=== PATIENT | male | born 1945 | race Caucasian/White ===

== ENCOUNTER → 2017-11-20 | Outpatient (CLI) | payer OTHER ==
[~2017-11-20] MED LIST: ALBU90OI INH; ASCO500 PO; ASPI325 PO; ATOR40TA PO; BENAML10/2; BENZ100A PO; BP MED; BUME2; BUME2 PO; CHOLESTEROL MED; CIPR500 PO; COLCRYS0.6 MG PO; CYAN1000 PO; CYCL10 PO; DIAZ5 PO; DOC250 PO; EXLAX; FISH1000 PO; GUAI600T33 PO; HYDACE5 PO; IBUP400 PO; LACT10SY PO; LEVO750 PO; LEVSOD75 PO; LISI20 PO; METO25ER PO; METPRE4DP PO; METR500 PO; NICO21TP TD; Naproxen500 MG PO; OFLO.3OPSO OS; OXYACE5T PO; OXYC5 PO; PANT40 PO; POTA10T PO; POTA20PAC PO; POTA8 PO; Percocet 5-3251 EACH PO; Prednisone20 MG PO; SIMV40 PO; SIMV5 PO; Valium5 MG PO
== END | disposition home or self-care (01) ==
LOC: PLD 08:19 → LAB SHORT 08:19
DX: L82.1 Other seborrheic keratosis (principal)
CPT/HCPCS: 88305

== ENCOUNTER 2017-11-23 22:34 | Inpatient (IN) | payer OTHER ==
[~2017-11-23] VITALS: Ht 177.8 cm; Wt 116.0 kg
[~2017-11-23 22:34] MED LIST changes: -ATOR40TA PO; -COLCRYS0.6 MG PO; -LEVSOD75 PO; -METO25ER PO; -NICO21TP TD; -PANT40 PO
[2017-11-23 23:32] LABS: BASOPHILS ABSOLUTE AUTO 0.03 K/mm3 (0.00-0.23); BASOPHILS PERCENT AUTO 0 % (0-2); EOSINOPHILS ABSOLUTE AUTO 0.12 K/mm3 (0.00-0.68); EOSINOPHILS PERCENT AUTO 1 % (0-6); Hematocrit 31.7 % (37.0-53.0); Hemoglobin 10.6 g/dL (13.5-17.5); IMMATURE GRAN ABSOLUTE AUTO 0.09 K/mm3 (0.00-0.10); IMMATURE GRAN PERCENT AUTO 1 % (0-1); LYMPHOCYTES ABSOLUTE AUTO 1.02 K/mm3 (0.84-5.20); LYMPHOCYTES PERCENT AUTO 6 % (21-46); MONOCYTES ABSOLUTE AUTO 2.24 K/mm3 (0.16-1.47); MONOCYTES PERCENT AUTO 14 % (4-13); Mean Corpuscular HGB 31.5 pg (26.0-34.0); Mean Corpuscular HGB Conc 33.4 g/dL (31.5-36.5); Mean Corpuscular Volume 94 fL (80-100); Mean Platelet Volume 8.9 fL (9.1-12.4); NEUTROPHILS PERCENT AUTO 78 % (41-73); Platelet Count 425 K/mm3 (150-400); RDW Coefficient Variation 12.5 % (11.7-14.2); RDW Standard Deviation 43.6 fL (35.1-46.3); Red Blood Cell Count 3.36 M/mm3 (4.30-5.90)
[2017-11-23 23:46] LABS: Alanine Aminotransfer (ALT/SGP 46 U/L (12-78); Albumin, Blood 2.7 g/dL (3.4-5.0); Albumin/Globulin Ratio 0.6 (0.8-1.8); Alk Phos 133 U/L (50-136); Anion Gap 10 mmol/L (6-16); Aspartate Aminotrans (AST/SGOT 23 U/L (12-37); Bilirubin, Total 0.7 mg/dL (0.1-1.0); Blood Urea Nitrogen 23 mg/dL (8-24); CO2, Blood 25 mmol/L (21-32); Calcium, Blood 8.4 mg/dL (8.5-10.1); Chloride, Blood 99 mmol/L (98-108); Creatinine, Blood 1.28 mg/dL (0.60-1.20); Globulin, Blood 4.9 g/dL (2.2-4.0); Glomerular Filtration Rate 58 (60-); Glucose, Blood 109 mg/dL (70-99); Potassium, Blood 3.9 mmol/L (3.5-5.5); Sodium, Blood 134 mmol/L (136-145); Total Protein, Blood 7.6 g/dL (6.4-8.2); Troponin I <0.015 ng/mL (0.000-0.040)
[2017-11-24 05:37] LABS: Source, Urine Clean Catch
[2017-11-24 05:42] LABS: Blood, Urine 1+ (Neg); Glucose Qualitative, Urine Neg (Neg); Ketones, Urine 1+ (Neg); Leukocyte Esterase, Urine 2+ (Neg); Nitrite, Urine Pos (Neg); Protein, Urine 1+ (Neg); Urobilinogen, Urine 2+ (Normal)
[2017-11-24 05:50] LABS: Appearance, Urine Hazy (Clear); Bilirubin, Urine 2+ (Neg); Color, Urine Amber (P-Yellow)
[2017-11-24 05:52] LABS: Bacteria Few /hpf; Mucus Light (0-Heavy); Red Blood Cells, Urine 0-2 /hpf (0-2); Squamous Epithelial Cells Mod /hpf (Few)
[2017-11-24 06:16] LABS: International Normalized Ratio 1.07; Prothrombin Time Results 11.1 Sec (9.7-11.5)
[2017-11-24 07:37] LABS: CPK Creatine Kinase 55 U/L (39-308); Troponin I <0.015 ng/mL (0.000-0.040)
[2017-11-24 15:16] LABS: BASOPHILS ABSOLUTE AUTO 0.03 K/mm3 (0.00-0.23); BASOPHILS PERCENT AUTO 0 % (0-2); EOSINOPHILS ABSOLUTE AUTO 0.08 K/mm3 (0.00-0.68); EOSINOPHILS PERCENT AUTO 1 % (0-6); Hemoglobin 10.2 g/dL (13.5-17.5); IMMATURE GRAN ABSOLUTE AUTO 0.06 K/mm3 (0.00-0.10); IMMATURE GRAN PERCENT AUTO 1 % (0-1); LYMPHOCYTES ABSOLUTE AUTO 0.96 K/mm3 (0.84-5.20); LYMPHOCYTES PERCENT AUTO 9 % (21-46); MONOCYTES ABSOLUTE AUTO 1.59 K/mm3 (0.16-1.47); MONOCYTES PERCENT AUTO 15 % (4-13); Mean Corpuscular HGB 31.3 pg (26.0-34.0); Mean Corpuscular HGB Conc 32.9 g/dL (31.5-36.5); Mean Corpuscular Volume 95 fL (80-100); Mean Platelet Volume 8.5 fL (9.1-12.4); NEUTROPHILS ABSOLUTE AUTO 7.65 K/mm3 (1.96-9.15); NEUTROPHILS PERCENT AUTO 74 % (41-73); Platelet Count 326 K/mm3 (150-400); RDW Coefficient Variation 12.6 % (11.7-14.2); RDW Standard Deviation 43.8 fL (35.1-46.3); Red Blood Cell Count 3.26 M/mm3 (4.30-5.90); White Blood Cell Count 10.37 K/mm3 (4.00-11.30)
[2017-11-24 15:34] LABS: Alanine Aminotransfer (ALT/SGP 39 U/L (12-78); Albumin, Blood 2.6 g/dL (3.4-5.0); Albumin/Globulin Ratio 0.5 (0.8-1.8); Alk Phos 129 U/L (50-136); Anion Gap 10 mmol/L (6-16); Aspartate Aminotrans (AST/SGOT 20 U/L (12-37); Bilirubin, Total 0.7 mg/dL (0.1-1.0); Blood Urea Nitrogen 23 mg/dL (8-24); Bun/Creatinine Ratio 20.2 (12.0-20.0); CO2, Blood 29 mmol/L (21-32); Calcium, Blood 8.4 mg/dL (8.5-10.1); Chloride, Blood 99 mmol/L (98-108); Creatinine, Blood 1.14 mg/dL (0.60-1.20); Globulin, Blood 4.8 g/dL (2.2-4.0); Glomerular Filtration Rate >60 (60-); Glucose, Blood 94 mg/dL (70-99); Potassium, Blood 3.4 mmol/L (3.5-5.5); Sodium, Blood 138 mmol/L (136-145); Total Protein, Blood 7.4 g/dL (6.4-8.2)
[2017-11-24 15:39] LABS: CPK Creatine Kinase 37 U/L (39-308); Troponin I <0.015 ng/mL (0.000-0.040)
[2017-11-25 04:13] LABS: BASOPHILS ABSOLUTE AUTO 0.03 K/mm3 (0.00-0.23); BASOPHILS PERCENT AUTO 0 % (0-2); EOSINOPHILS PERCENT AUTO 2 % (0-6); Hematocrit 30.8 % (37.0-53.0); Hemoglobin 10.1 g/dL (13.5-17.5); IMMATURE GRAN ABSOLUTE AUTO 0.07 K/mm3 (0.00-0.10); IMMATURE GRAN PERCENT AUTO 1 % (0-1); LYMPHOCYTES ABSOLUTE AUTO 1.44 K/mm3 (0.84-5.20); LYMPHOCYTES PERCENT AUTO 17 % (21-46); MONOCYTES ABSOLUTE AUTO 1.62 K/mm3 (0.16-1.47); MONOCYTES PERCENT AUTO 19 % (4-13); Mean Corpuscular HGB 30.9 pg (26.0-34.0); Mean Corpuscular HGB Conc 32.8 g/dL (31.5-36.5); Mean Corpuscular Volume 94 fL (80-100); Mean Platelet Volume 8.9 fL (9.1-12.4); NEUTROPHILS ABSOLUTE AUTO 5.28 K/mm3 (1.96-9.15); NEUTROPHILS PERCENT AUTO 61 % (41-73); Platelet Count 341 K/mm3 (150-400); RDW Coefficient Variation 12.5 % (11.7-14.2); RDW Standard Deviation 43.8 fL (35.1-46.3); Red Blood Cell Count 3.27 M/mm3 (4.30-5.90); White Blood Cell Count 8.64 K/mm3 (4.00-11.30)
[2017-11-25 04:38] LABS: Anion Gap 8 mmol/L (6-16); Blood Urea Nitrogen 22 mg/dL (8-24); Bun/Creatinine Ratio 22.3 (12.0-20.0); CO2, Blood 29 mmol/L (21-32); Calcium, Blood 8.6 mg/dL (8.5-10.1); Chloride, Blood 100 mmol/L (98-108); Creatinine, Blood 0.99 mg/dL (0.60-1.20); Glomerular Filtration Rate >60 (60-); Glucose, Blood 97 mg/dL (70-99); Potassium, Blood 3.4 mmol/L (3.5-5.5); Sodium, Blood 137 mmol/L (136-145); Thyroxine (T4) 8.9 ug/dL (4.5-12.1)
[2017-11-25 04:42] LABS: Triiodothyronine, Free 1.55 pg/mL (2.18-3.98)
[2017-11-26 04:59] LABS: Anion Gap 7 mmol/L (6-16); Blood Urea Nitrogen 18 mg/dL (8-24); Bun/Creatinine Ratio 19.4 (12.0-20.0); CO2, Blood 29 mmol/L (21-32); Calcium, Blood 8.6 mg/dL (8.5-10.1); Chloride, Blood 100 mmol/L (98-108); Creatinine, Blood 0.93 mg/dL (0.60-1.20); Glomerular Filtration Rate >60 (60-); Glucose, Blood 102 mg/dL (70-99); Potassium, Blood 3.9 mmol/L (3.5-5.5); Sodium, Blood 136 mmol/L (136-145)
[2017-11-26] MEDS ORDERED: ASPI325 PO (12:03)
[2017-11-26] MEDS ORDERED: ATOR40TA PO (12:04)
[2017-11-26] MEDS ORDERED: COLCRYS0.6 MG PO (12:05)
[2017-11-26] MEDS ORDERED: LEVSOD75 PO (12:07)
[2017-11-26] MEDS ORDERED: METO25ER PO (12:08)
[2017-11-26] MEDS ORDERED: NICO21TP TD (12:09)
[2017-11-26] MEDS ORDERED: PANT40 PO (12:10)
[2017-11-28 11:10] LABS: ANA DIRECT Positive (Negative); ANTI-CENTROMERE B ANTIBODIES <0.2 AI (0.0-0.9); ANTI-DNA (DS) AB QN 1 IU/mL (0-9); ANTI-JO-1 <0.2 AI (0.0-0.9); ANTICHROMATIN ANTIBODIES <0.2 AI (0.0-0.9); ANTIMYELOPEROXIDASE (MPO) ABS <9.0 U/mL (0.0-9.0); ANTIPROTEINASE 3 (PR-3) ABS <3.5 U/mL (0.0-3.5); ANTIRIBOSOMAL P ANTIBODIES <0.2 AI (0.0-0.9); ANTISCLERODERMA-70 ANTIBODIES 2.8 AI (0.0-0.9); ATYPICAL PANCA <1:20 titer (Neg:<1:20); CYTOPLASMIC (C-ANCA) <1:20 titer (Neg:<1:20); PERINUCLEAR (P-ANCA) <1:20 titer (Neg:<1:20); RNP ANTIBODIES <0.2 AI (0.0-0.9); SJOGREN'S ANTI-SS-A <0.2 AI (0.0-0.9); SJOGREN'S ANTI-SS-B <0.2 AI (0.0-0.9); SMITH ANTIBODIES <0.2 AI (0.0-0.9); SMITH/RNP ANTIBODIES <0.2 AI (0.0-0.9)
[2017-11-28 16:09] LABS: A/G RATIO 0.8 (0.7-1.7); ALBUMIN 2.9 g/dL (2.9-4.4); ALPHA-1-GLOBULIN 0.3 g/dL (0.0-0.4); ALPHA-2-GLOBULIN 1.3 g/dL (0.4-1.0); GAMMA GLOBULIN 1.2 g/dL (0.4-1.8); GLOBULIN, TOTAL 3.8 g/dL (2.2-3.9); M-SPIKE Not Observed g/dL (Not Observed); PROTEIN, TOTAL, SERUM 6.7 g/dL (6.0-8.5)
== END 2017-11-26 12:53 | disposition home or self-care (01) | DRG 316 ==
LOC: ER 22:34 → PCU 11-24 00:47
PROVIDERS: Emergency Medicine; Internal Medicine
DX: I31.3 Pericardial effusion (noninflammatory) (principal); I25.10 Atherosclerotic heart disease of native coronary artery without angina pectoris; J44.9 Chronic obstructive pulmonary disease, unspecified; G62.9 Polyneuropathy, unspecified; I10 Essential (primary) hypertension; Z85.46 Personal history of malignant neoplasm of prostate; F17.210 Nicotine dependence, cigarettes, uncomplicated; R60.0 Localized edema
CPT/HCPCS: 36415; 71046; 71260; 76705; 80048; 80053; 81001; 82533; 82550; 83605; 83690; 83880; 84145; 84165; 84436; 84443; 84481; 84484; 85025; 85379; 85610; 85651; 86021; 87040; 87086; 93005; 93010; 93306; 93308; 93321; 94762; 96360; 96361; 99285; C9113; J1650; J1940; J1956; J7030; Q9967

== ENCOUNTER 2017-12-02 16:01 | Emergency (ER) | END 2017-12-02 18:34 | disposition home or self-care (01) ==

== ENCOUNTER 2018-11-09 14:13 | Emergency (ER) | payer OTHER ==
[~2018-11-09] VITALS: Ht 177.8 cm; Wt 111.6 kg
[~2018-11-09 14:13] MED LIST changes: +ATOR40TA PO; +COLCRYS0.6 MG PO; +LEVSOD75 PO; +METO25ER PO; +NICO21TP TD; +PANT40 PO
[2018-11-09] MEDS ORDERED: LISI5 PO (15:04)
[2018-11-09 17:30] LABS: BASOPHILS ABSOLUTE AUTO 0.04 K/mm3 (0.00-0.23); BASOPHILS PERCENT AUTO 0 % (0-2); EOSINOPHILS ABSOLUTE AUTO 0.35 K/mm3 (0.00-0.68); EOSINOPHILS PERCENT AUTO 4 % (0-6); Hematocrit 40.1 % (37.0-53.0); Hemoglobin 13.3 g/dL (13.5-17.5); IMMATURE GRAN ABSOLUTE AUTO 0.04 K/mm3 (0.00-0.10); IMMATURE GRAN PERCENT AUTO 0 % (0-1); LYMPHOCYTES ABSOLUTE AUTO 1.45 K/mm3 (0.84-5.20); LYMPHOCYTES PERCENT AUTO 15 % (21-46); MONOCYTES ABSOLUTE AUTO 1.15 K/mm3 (0.16-1.47); MONOCYTES PERCENT AUTO 12 % (4-13); Mean Corpuscular HGB 31.3 pg (26.0-34.0); Mean Corpuscular HGB Conc 33.2 g/dL (31.5-36.5); Mean Corpuscular Volume 94 fL (80-100); Mean Platelet Volume 9.1 fL (9.1-12.4); NEUTROPHILS ABSOLUTE AUTO 6.64 K/mm3 (1.96-9.15); NEUTROPHILS PERCENT AUTO 69 % (41-73); Platelet Count 238 K/mm3 (150-400); RDW Coefficient Variation 13.6 % (11.7-14.2); RDW Standard Deviation 46.2 fL (35.1-46.3); Red Blood Cell Count 4.25 M/mm3 (4.30-5.90); White Blood Cell Count 9.67 K/mm3 (4.00-11.30)
[2018-11-09] MEDS ORDERED: Percocet 5-3251 EACH PO (17:38)
== END 2018-11-09 18:00 | disposition home or self-care (01) ==
LOC: ER 14:13
PROVIDERS: Physician Assistant
DX: M54.5 Low back pain (principal); G89.29 Other chronic pain; F17.210 Nicotine dependence, cigarettes, uncomplicated; Z79.899 Other long term (current) drug therapy; Z79.82 Long term (current) use of aspirin
CPT/HCPCS: 74176; 85025; 85651; 99284-25; A9270-GY

== ENCOUNTER → 2019-04-16 | Outpatient (CLI) | payer OTHER ==
[~2019-04-16] MED LIST changes: +LISI5 PO
== END | disposition home or self-care (01) ==
LOC: LAB SHORT 14:42 → PLD 14:42
DX: L57.0 Actinic keratosis (principal)
CPT/HCPCS: 88305

== ENCOUNTER 2020-12-16 07:32 | Day surgery (SDC) | payer OTHER ==
[~2020-12-16] VITALS: Ht 177.8 cm; Wt 118.0 kg
[~2020-12-16 07:32] MED LIST changes: +Lisinopril10 MG PO; +Prinivil10 MG PO
--- NOTE | 2020-12-16 08:03 | NUR ---
DR. VELASQUEZ AT BEDSIDE TO EVALUATE PT, INTRODUCE SELF, AND ANSWER QUESTIONS. PT HAS BEEN PREPPED FOR PACEMAKER IMPLANT.
--- NOTE | 2020-12-16 12:06 | NUR ---
PT RETURNS TO RECOVERY ROOM VIA GURNEY, AWAKE AND ALERT. NEW PACEMAKER INSERTED ON LEFT SIDE CHEST. DENIES PAIN. HOB RAISED TO 90 DEGREES. TOLERATES PO FLUIDS/FOOD WITH NO DIFFICULTIES. VSS. PENDING ADMISSION TO PCU. INCISION IS COVERED WITH DRESSING NO BLEEDING OR OOZING NOTED. DRESSING C/D/I.
--- NOTE | 2020-12-16 12:48 | NUR ---
EKG COMPLETE. REPORT TO BE CALLED TO PCU 2 NURSE. PT PACEMAKER INCISION REMAINS COVERED, PRESSURE DRESSING IN PLACE. NO BLEEDING OR OOZING NOTED.
--- NOTE | 2020-12-16 13:25 | NUR ---
PT TRANSFERED TO PCU VIA W/C, ALL PERSONAL BELONGINGS SENT WITH HIM TO NEW ROOM, CXR COMPLETE. AMBULATORY IN ROOM WITH CANE, UNSTABLE BALANCE. CONTINUES TO APPEAR AOX4. DENIES PAIN. REPORT TO SHAYAN DOWNEY RN TO ASSUME CARE OF PT.
--- NOTE | 2020-12-16 13:30 | NUR ---
pt arrived to pcu 2 via wheelchair from [facility] via wheelchair, a/ox3, pleasant and coopertive with care, follows commands well, denies pain at this time, pressure dressing on site, v.s. stable. afebrile, iv site to lfa clear and patent, oriented to room layout and call system, call light in reach.
--- NOTE | 2020-12-16 18:13 | NUR ---
pt up to chair for dinner, took a nap, had some tylenol for discomfort, states it's feeling much better now. no acute changes or needs, call light in reach.
--- NOTE | 2020-12-16 20:00 | NUR ---
PT RESTING IN LOW SEMI FOWLERS POSITION IN BED. LEFT CHEST WALL PRESSURE DRESSING IN PLACE. PT DENIES ANY HEADACHE, CHEST PAIN, NAUSEA, SOB, OR NUMBNESS AND TINGLING. PT REPORTS HIS LEFT UPPER CHEST PAIN 1/10 WHICH HE REPORTS TOLERABLE. PROVIDED PT WITH WATER, AND A PILLOW, OTHERWISE HE DENIES ANY REQUESTS. HOME CPAP AT BEDSIDE - CONTACTED [facility] FOR CPAP ASSISTANCE/CHECK. PT HAS CHRONIC EDEMA TO BLE, LEFT LEG EDEMA 3+. PT REPORTS HE FOLLOWS UP WITH A DRAnita FOR HIS LEG EDEMA AND REPORTS HE TAKES A "WATER PILL". BED IN LOW POSITION. CALL LIGHT WITHIN REACH. NO PACER SPIKES SEEN ON MONITOR.
--- NOTE | 2020-12-17 02:30 | NUR ---
KNEE HIGH GISELE LEVINE PLACED ON TO BLE.
--- NOTE | 2020-12-17 06:08 | NUR ---
PRESSURE DRESSING TO LEFT CHEST WALL REMAINS UNCHANGED FROM THE BEGINNING OF THE SHIFT. PT DENIES ANY CHEST PAIN OR DISCOMFORT. PT'S MAIN COMPLAINT TONIGHT WAS LACK OF SLEEP. PT IS ANTICIPATING GOING HOME TODAY. PT CURRENTLY SITTING IN BED, DANGLING HIS LEGS, DRINKING DECAF COFFEE. FLUIDS AT BEDSIDE. CALL LIGHT WITHIN REACH. BED IN LOW POSITION. OCCASIONAL PACER SPIKES DURING THE NIGHT. PT WORE HIS CPAP FOR APPX 2-3 HOURS, CONTINUOUS BIOX IN PLACE - SATS WNL.
[2020-12-17 06:19] LABS: BASOPHILS ABSOLUTE AUTO 0.05 K/mm3 (0.00-0.23); BASOPHILS PERCENT AUTO 1 % (0-2); EOSINOPHILS ABSOLUTE AUTO 0.34 K/mm3 (0.00-0.68); EOSINOPHILS PERCENT AUTO 3 % (0-6); Hematocrit 37.3 % (37.0-53.0); Hemoglobin 12.6 g/dL (13.5-17.5); IMMATURE GRAN ABSOLUTE AUTO 0.05 K/mm3 (0.00-0.10); IMMATURE GRAN PERCENT AUTO 1 % (0-1); LYMPHOCYTES ABSOLUTE AUTO 0.91 K/mm3 (0.84-5.20); LYMPHOCYTES PERCENT AUTO 9 % (21-46); MONOCYTES ABSOLUTE AUTO 1.08 K/mm3 (0.16-1.47); MONOCYTES PERCENT AUTO 11 % (4-13); Mean Corpuscular HGB 32.2 pg (26.0-34.0); Mean Corpuscular HGB Conc 33.8 g/dL (31.5-36.5); Mean Corpuscular Volume 95 fL (80-100); Mean Platelet Volume 9.4 fL (9.1-12.4); NEUTROPHILS ABSOLUTE AUTO 7.57 K/mm3 (1.96-9.15); NEUTROPHILS PERCENT AUTO 76 % (41-73); Platelet Count 177 K/mm3 (150-400); RDW Coefficient Variation 13.1 % (11.7-14.2); RDW Standard Deviation 45.4 fL (35.1-46.3); Red Blood Cell Count 3.91 M/mm3 (4.30-5.90)
[2020-12-17 06:36] LABS: Anion Gap 6 mmol/L (6-16); Blood Urea Nitrogen 21 mg/dL (8-24); Bun/Creatinine Ratio 17.8 (12.0-20.0); CO2, Blood 25 mmol/L (21-32); Calcium, Blood 8.6 mg/dL (8.5-10.1); Chloride, Blood 107 mmol/L (98-108); Creatinine, Blood 1.18 mg/dL (0.60-1.20); Glomerular Filtration Rate >60 (60-); Glucose, Blood 117 mg/dL (70-99); Potassium, Blood 4.2 mmol/L (3.5-5.5); Sodium, Blood 138 mmol/L (136-145)
[2020-12-17] MEDS ORDERED: CEPH500 PO (09:49)
--- NOTE | 2020-12-17 10:30 | NUR ---
DISCHARGE PT WAS DISCHARGED TODAY AT APPROXIMATELY 1020. PT WAS GIVEN INSTRUCTIONS TO FOLLOW UP WITH CARDIOLOGY THIS COMING WEEK FOR WOUND CHECK AT THE PACER SITE, HE WAS ALSO INSTRUCTED TO FOLLOW UP IN 6 WEEKS FOR DEVICE CHECK. PT WAS GIVEN WRITTEN INSTRUCTIONS FOR PACER AFTER CARE AND PRECAUTIONS. PT WAS GIVEN INSTRUCTION TO FILL ANTIBIOTIC PRESCRIPTION TODAY TO PREVENT INFECTION AT THE SITE. PT GAVE VERBAL UNDERSTANDING. PT WAS SHOWN HOW TO REDRESS THE PACER SITE AND HIS WAS GIVEN VERBAL INSTRUCTIONS WELL. PT GAVE UNDERSTANDING DID HIS SPOUSE. PT WAS DISCHARGED AFTER TELE WAS DC'D AND IV WAS REMOVED
== END 2020-12-17 10:20 | disposition home or self-care (01) ==
LOC: MHTC 07:32 → PCU 12:49 → MHTC 12-17 10:20
PROVIDERS: Internal Medicine Cardiovascular Disease
DX: I44.39 Other atrioventricular block (principal); I25.10 Atherosclerotic heart disease of native coronary artery without angina pectoris; I10 Essential (primary) hypertension; E78.5 Hyperlipidemia, unspecified; J44.9 Chronic obstructive pulmonary disease, unspecified; I87.2 Venous insufficiency (chronic) (peripheral); Z79.82 Long term (current) use of aspirin; Z79.899 Other long term (current) drug therapy
CPT/HCPCS: 33208; 36415; 71045; 76937; 80048; 85025; 93005; 93010; 94762; 99152; 99153; A9270; C1781; C1785; C1894; C1898; J0690; J1644; J2250; J3010; J7030; J7040; Q9967

== ENCOUNTER → 2021-06-09 | Outpatient (CLI) | payer OTHER ==
[~2021-06-09] MED LIST changes: +CEPH500 PO
[2021-06-09 19:01] LABS: BASOPHILS ABSOLUTE AUTO 0.03 K/mm3 (0.00-0.23); BASOPHILS PERCENT AUTO 0 % (0-2); EOSINOPHILS ABSOLUTE AUTO 0.31 K/mm3 (0.00-0.68); EOSINOPHILS PERCENT AUTO 5 % (0-6); Hematocrit 35.8 % (37.0-53.0); Hemoglobin 12.1 g/dL (13.5-17.5); IMMATURE GRAN ABSOLUTE AUTO 0.01 K/mm3 (0.00-0.10); IMMATURE GRAN PERCENT AUTO 0 % (0-1); LYMPHOCYTES ABSOLUTE AUTO 1.25 K/mm3 (0.84-5.20); LYMPHOCYTES PERCENT AUTO 18 % (21-46); MONOCYTES ABSOLUTE AUTO 0.97 K/mm3 (0.16-1.47); MONOCYTES PERCENT AUTO 14 % (4-13); Mean Corpuscular HGB 31.4 pg (26.0-34.0); Mean Corpuscular HGB Conc 33.8 g/dL (31.5-36.5); Mean Corpuscular Volume 93 fL (80-100); NEUTROPHILS ABSOLUTE AUTO 4.35 K/mm3 (1.96-9.15); NEUTROPHILS PERCENT AUTO 63 % (41-73); Platelet Count 245 K/mm3 (150-400); RDW Coefficient Variation 13.2 % (11.7-14.2); RDW Standard Deviation 44.7 fL (35.1-46.3); Red Blood Cell Count 3.85 M/mm3 (4.30-5.90); White Blood Cell Count 6.92 K/mm3 (4.00-11.30)
[2021-06-09 19:10] LABS: Bun/Creatinine Ratio 20.3 (12.0-20.0); Calcium, Blood 8.8 mg/dL (8.5-10.1); Creatinine, Blood 1.48 mg/dL (0.60-1.20)
== END | disposition home or self-care (01) ==
LOC: LAB SHORT 18:54
PROVIDERS: Physician Assistant Surgical
DX: R06.00 Dyspnea, unspecified (principal)
CPT/HCPCS: 80048; 83880; 85025

== ENCOUNTER 2021-08-13 20:48 | Emergency (ER) | payer OTHER ==
[~2021-08-13] VITALS: Ht 177.8 cm; Wt 66.2 kg
== END 2021-08-13 21:59 | disposition home or self-care (01) ==
LOC: ER 20:48
DX: G89.29 Other chronic pain (principal); M54.50 Low back pain, unspecified; F17.210 Nicotine dependence, cigarettes, uncomplicated; G62.9 Polyneuropathy, unspecified; I10 Essential (primary) hypertension; Z79.82 Long term (current) use of aspirin; Z79.899 Other long term (current) drug therapy; Z85.46 Personal history of malignant neoplasm of prostate
CPT/HCPCS: 96372; 99283; J1885

== ENCOUNTER → 2021-08-16 | Outpatient (CLI) | payer OTHER | END | disposition home or self-care (01) | LOC: LAB 13:35 → LAB SHORT 13:35 | DX: M54.50 Low back pain, unspecified (principal); R82.90 Unspecified abnormal findings in urine | CPT/HCPCS: 87086 ==

== ENCOUNTER 2022-06-12 12:58 | Emergency (ER) | payer OTHER ==
[~2022-06-12] VITALS: Ht 177.8 cm; Wt 117.9 kg
[2022-06-12] MEDS ORDERED: Percocet 5-3251 EACH PO (17:12)
== END 2022-06-12 17:33 | disposition home or self-care (01) ==
LOC: ER 12:58
DX: M17.12 Unilateral primary osteoarthritis, left knee (principal); M25.462 Effusion, left knee; I10 Essential (primary) hypertension; F17.210 Nicotine dependence, cigarettes, uncomplicated; Z79.82 Long term (current) use of aspirin; Z79.899 Other long term (current) drug therapy
CPT/HCPCS: 73560-LT; A9270; J2270

== ENCOUNTER 2022-12-23 17:46 | Emergency (ER) | payer OTHER ==
[~2022-12-23] VITALS: Ht 175.3 cm; Wt 111.6 kg
[2022-12-23 17:57] VITALS: BP 111/71
[2022-12-23] MEDS ORDERED: KLOR-CON 1010 ME9 PO (18:05)
[2022-12-23] MEDS ORDERED: PRED20 PO (19:11)
[2022-12-23] MEDS ORDERED: Percocet 5-3251 EACH PO (19:12)
== END 2022-12-23 19:46 | disposition home or self-care (01) ==
LOC: ER 17:46
DX: M25.531 Pain in right wrist (principal); M10.9 Gout, unspecified; Z79.899 Other long term (current) drug therapy; I10 Essential (primary) hypertension; F17.210 Nicotine dependence, cigarettes, uncomplicated
CPT/HCPCS: 73110; 96372; 99283-25; A9270; J1885; J7512

== ENCOUNTER → 2023-08-01 | Outpatient (CLI) | payer OTHER ==
[~2023-08-01] MED LIST changes: +Aspir 8181 MG PO; +CLOP75 PO; +Crestor20 MG PO; +KLOR-CON 1010 ME9 PO; +PRED20 PO
[2023-08-02 15:12] LABS: CALCIUM, SERUM 9.9 mg/dL (8.6-10.2); CREATININE, SERUM 1.19 mg/dL (0.76-1.27); POTASSIUM, SERUM 3.1 mmol/L (3.5-5.2)
== END ==
LOC: LAB SHORT 13:55 → LAB 13:55
PROVIDERS: Family Medicine
DX: R60.0 Localized edema (principal)
CPT/HCPCS: 80048

== ENCOUNTER 2024-06-25 11:42 | Emergency (ER) | payer OTHER ==
[~2024-06-25] VITALS: Ht 177.8 cm; Wt 102.5 kg
[~2024-06-25 11:42] MED LIST changes: +JARDIANCE10 MG PO; +METO50ER PO
[2024-06-25 12:03] LABS: BASOPHILS ABSOLUTE AUTO 0.05 K/mm3 (0.00-0.23); BASOPHILS PERCENT AUTO 1 % (0-2); EOSINOPHILS ABSOLUTE AUTO 0.57 K/mm3 (0.00-0.68); EOSINOPHILS PERCENT AUTO 7 % (0-6); Hematocrit 41.8 % (37.0-53.0); Hemoglobin 13.9 g/dL (13.5-17.5); IMMATURE GRAN ABSOLUTE AUTO 0.03 K/mm3 (0.00-0.10); IMMATURE GRAN PERCENT AUTO 0 % (0-1); LYMPHOCYTES ABSOLUTE AUTO 0.98 K/mm3 (0.84-5.20); LYMPHOCYTES PERCENT AUTO 12 % (21-46); MONOCYTES ABSOLUTE AUTO 0.83 K/mm3 (0.16-1.47); MONOCYTES PERCENT AUTO 10 % (4-13); Mean Corpuscular HGB Conc 33.3 g/dL (31.5-36.5); Mean Corpuscular Volume 93 fL (80-100); Mean Platelet Volume 9.4 fL (9.1-12.4); NEUTROPHILS ABSOLUTE AUTO 5.55 K/mm3 (1.96-9.15); NEUTROPHILS PERCENT AUTO 69 % (41-73); Platelet Count 215 K/mm3 (150-400); RDW Coefficient Variation 13.9 % (11.7-14.2); RDW Standard Deviation 47.7 fL (35.1-46.3); Red Blood Cell Count 4.48 M/mm3 (4.30-5.90); White Blood Cell Count 8.01 K/mm3 (4.00-11.30)
[2024-06-25 12:33] LABS: Albumin, Blood 3.7 g/dL (3.4-5.0); Albumin/Globulin Ratio 0.9 (0.8-1.8); Bilirubin, Total 0.5 mg/dL (0.1-1.0); Bun/Creatinine Ratio 20.8 (12.0-20.0); Calcium, Blood 9.2 mg/dL (8.5-10.1); Creatinine, Blood 1.3 mg/dL (0.60-1.20); Potassium, Blood 3.6 mmol/L (3.5-5.5); Total Protein, Blood 7.7 g/dL (6.4-8.2)
[2024-06-25 13:30] VITALS: BP 111/73
== END 2024-06-25 14:07 | disposition home or self-care (01) ==
LOC: ER 11:42
PROVIDERS: Emergency Medicine
DX: R07.89 Other chest pain (principal); E78.5 Hyperlipidemia, unspecified; I10 Essential (primary) hypertension; I25.2 Old myocardial infarction; I25.10 Atherosclerotic heart disease of native coronary artery without angina pectoris; J44.9 Chronic obstructive pulmonary disease, unspecified; F17.210 Nicotine dependence, cigarettes, uncomplicated; Z79.82 Long term (current) use of aspirin; Z79.02 Long term (current) use of antithrombotics/antiplatelets; Z95.0 Presence of cardiac pacemaker; Z79.899 Other long term (current) drug therapy; Z95.5 Presence of coronary angioplasty implant and graft; Z95.1 Presence of aortocoronary bypass graft
CPT/HCPCS: 71045; 80053; 84484; 85025; 93005; 93010; 99285-25

== ENCOUNTER 2024-10-23 06:13 | Observation (INO) | payer OTHER ==
[2024-10-23] VITALS (17 sets, daily range): BP systolic 100–124; BP diastolic 63–79
[~2024-10-23] VITALS: Ht 177.8 cm; Wt 105.9 kg
[~2024-10-23 06:13] MED LIST changes: +ALLO100 PO; +Acetaminophen 500 MG Tab PO SCH; +CeFAZolin Sodium 2,000 MG in NS 100 ML IV SCH; +Chlorhexidine Mouth Care 15 ML UDC MT SCH; -JARDIANCE10 MG PO; +JARDIANCE25 MG PO; -KLOR-CON 1010 ME9 PO; +Lactated Ringer's 1,000 ML IV SCH; +OxyCODONE HCL 10 MG TABCR PO SCH; +POTCHL20ER PO; +Ropivacaine 0.5% HCl/Pf 123.125 MG,EPINEPHrine HCL 0.25 MG,Ketorolac Tromethamine 15 MG... INFIL SCH
[2024-10-23] MEDS ORDERED: Tranexamic Acid 100 ML IV SCH (06:35)
[2024-10-23] MEDS ORDERED: Midazolam HCl 1MG / ML 2ML Vial ONE (07:07)
[2024-10-23] MEDS ORDERED: Etomidate 2MG / ML 10ML Vial ONE (07:31)
[2024-10-23] MEDS ORDERED: FentaNYL Citrate 50 MCG/ML 2 ML Injection ONE (07:32)
--- NOTE | 2024-10-23 07:35 | NUR ---
AT 0713, TIMEOUT PERFORMED WITH MO (SLOT TAG INSERTER) FOR INTRASCALENE NERVE BLOCK RIGHT SIDE PRIOR TO RIGHT SHOULDER SURGERY. 716 PROCEDURE START TIME. 723 PROCEDURE END TIME. PT TOLERATED PROCEDURE WELL.
[2024-10-23] MEDS ORDERED: Dexamethasone Sod Phos 10 MG/ML 1ML VIAL ONE ×2 (07:50→07:52)
[2024-10-23] MEDS ORDERED: Ketorolac Tromethamine 30mg Vial ONE (07:50)
[2024-10-23] MEDS ORDERED: Rocuronium Bromide 10 MG/ML 5ML Injection IV ONE (07:50)
[2024-10-23] MEDS ORDERED: Bupivacaine 0.5% HCl 5 MG/ML 30MLVIAL ONE (07:50)
[2024-10-23] MEDS ORDERED: Phenylephrine HCl 100 MCG/ML-NS 10MLSYR (1MG/10ML) ONE (07:50)
[2024-10-23] MEDS ORDERED: Ondansetron HCl 2 MG / ML 2ML Vial ONE ×3 (07:50→10:52)
[2024-10-23] MEDS ORDERED: Lidocaine HCl 2% 20 ML MDV ONE (07:50)
[2024-10-23] MEDS ORDERED: EpiNEPhrine 1 MG/1 ML 1ML Vial ONE (07:50)
[2024-10-23] MEDS ORDERED: Sugammadex Sodium 200 MG/2ML SDV (100 MG/ML) ONE (10:01)
[2024-10-23] MEDS ORDERED: HYDROmorphone HCl/Pf 1MG SYR IV PRN ×2 (10:25)
[2024-10-23] MEDS ORDERED: Albuterol 2.5 MG/3 ML VIAL INH PRN (10:25)
[2024-10-23] MEDS ORDERED: FentaNYL Citrate 50 MCG/ML 2 ML Injection IV PRN ×2 (10:25)
[2024-10-23] MEDS ORDERED: Morphine Sulfate 4 MG/1 ML Injection IV PRN (10:25)
[2024-10-23] MEDS ORDERED: Ondansetron HCl 2 MG / ML 2ML Vial IV PRN ×2 (10:25→10:35)
[2024-10-23] MEDS ORDERED: DiphenhydrAMINE HCL 25 MG Cap PO PRN (10:30)
[2024-10-23] MEDS ORDERED: Metoclopramide HCl 5MG / ML 2ML Vial IV PRN (10:30)
[2024-10-23] MEDS ORDERED: Promethazine HCl 25 MG Tab PO PRN (10:30)
[2024-10-23] MEDS ORDERED: Magnesium Hydroxide Conc 10 ML UDC PO PRN (10:30)
[2024-10-23] MEDS ORDERED: OxyCODONE HCL 5 MG TAB PO PRN ×2 (10:35)
[2024-10-23] MEDS ORDERED: Bisacodyl 10 MG Supp PR PRN (10:40)
[2024-10-23] MEDS ORDERED: Prochlorperazine Edisylate 10 mg Vial IV PRN (10:40)
[2024-10-23] MEDS ORDERED: Lactated Ringer's 1,000 ML IV SCH (10:50)
[2024-10-23] MEDS ORDERED: Insulin Regular 100 UNIT/ML 10ML Vial SC SCH (11:30)
[2024-10-23] MEDS ORDERED: Ketorolac Tromethamine 15mg Vial IV SCH (12:00)
--- NOTE | 2024-10-23 14:19 | NUR ---
POST OP: REPORT RECEIVED FROM ROOFING FOREMAN. PT TO ROOM AT 1103, VSS, A/O. R ARM IN IMMOBILIZER, INCISION WNL. PT DENIES PAIN AT THIS TIME. INSTRUCTED TO USE CALL LIGHT IF NEEDS OOB. CALL LIGHT IN REACH
[2024-10-23] MEDS ORDERED: CeFAZolin Sodium 2,000 MG in NS 100 ML IV SCH (15:30)
[2024-10-23] MEDS ORDERED: Acetaminophen 500 MG Tab PO SCH (16:00)
--- NOTE | 2024-10-23 17:38 | NUR ---
SUMMARY: NO CHANGE SINCE POST OP. VSS, A/O. MINIMAL PAIN, MEDICATED WITH TYLENOL AND TORADOL. PT UP TO BATHROOM AND TO CHAIR WITH PT/OT, SEE NOTES. PT USES CALL LIGHT AND MAKES NEEDS KNOWN.
[2024-10-23] MEDS ORDERED: Docusate Sodium 100 MG Cap PO SCH (21:00)
[2024-10-23] MEDS ORDERED: Bumetanide 1 MG Tab PO ONE (21:25)
--- NOTE | 2024-10-23 21:46 | NUR ---
COMMUNICATION PT REPORTING NO VOID POST OP, STATES HE HASNT TAKEN HIS BUMEX TODAY 10/23 WHICH HE TAKES DAILY TO HELP URINATE. BILAT +4 PEDAL EDEMA, +2 CALF EDEMA, CRACKLES HEARD TO RLL. INFORMED DR BUTTERFIELD & SHE ORDERED A BLADDER SCAN & A DOSE OF BUMEX TONIGHT. BLADDER SCAN =59ML. PT COMPLETELY REFUSES PO BUMEX TONIGHT. CHARGE NURSE AKASH THOMPSON
[2024-10-24 00:40] VITALS: BP 112/68
--- NOTE | 2024-10-24 02:25 | NUR ---
TRANSFER OF CARE GAVE REPORT TO RICH Martin AT APPROX 0220. PT RESTING IN RECLINER, REPORTS MIN PAIN TO R SHOULDER 08/17, MEDICATED @0030 W/SCHEDULED TYLENOL & TORADOL. R ARM SLING & CRYO IN PLACE. PT ABLE TO WIGGLE FINGERS, STRONG PULSE, DENIES N/T TO R ARM. VSS. READ PREVIOUS NOTE REGARDING EDEMA, NO VOID & REFUSAL TO TAKE BUMEX. PT FINALLY VOIDED 200ML DARK ORANGE URINE APPROX 0030. CALL LIGHT IN REACH.
[2024-10-24 04:44] VITALS: BP 88/64
[2024-10-24 05:26] LABS: BASOPHILS ABSOLUTE AUTO 0.02 K/mm3 (0.00-0.23); BASOPHILS PERCENT AUTO 0 % (0-2); EOSINOPHILS ABSOLUTE AUTO 0.01 K/mm3 (0.00-0.68); EOSINOPHILS PERCENT AUTO 0 % (0-6); Hematocrit 38.6 % (37.0-53.0); Hemoglobin 12.5 g/dL (13.5-17.5); IMMATURE GRAN ABSOLUTE AUTO 0.05 K/mm3 (0.00-0.10); IMMATURE GRAN PERCENT AUTO 0 % (0-1); LYMPHOCYTES ABSOLUTE AUTO 0.75 K/mm3 (0.84-5.20); LYMPHOCYTES PERCENT AUTO 5 % (21-46); MONOCYTES ABSOLUTE AUTO 1.35 K/mm3 (0.16-1.47); MONOCYTES PERCENT AUTO 9 % (4-13); Mean Corpuscular HGB 30.9 pg (26.0-34.0); Mean Corpuscular HGB Conc 32.4 g/dL (31.5-36.5); Mean Corpuscular Volume 96 fL (80-100); Mean Platelet Volume 9.6 fL (9.1-12.4); NEUTROPHILS ABSOLUTE AUTO 12.88 K/mm3 (1.96-9.15); NEUTROPHILS PERCENT AUTO 86 % (41-73); Platelet Count 259 K/mm3 (150-400); RDW Coefficient Variation 15.1 % (11.7-14.2); RDW Standard Deviation 53.2 fL (35.1-46.3); Red Blood Cell Count 4.04 M/mm3 (4.30-5.90); White Blood Cell Count 15.06 K/mm3 (4.00-11.30)
[2024-10-24 05:53] LABS: Bun/Creatinine Ratio 26.4 (12.0-20.0); Calcium, Blood 9.2 mg/dL (8.5-10.1); Creatinine, Blood 1.25 mg/dL (0.60-1.20); Magnesium, Blood 2.3 mg/dL (1.6-2.4); Potassium, Blood 4.1 mmol/L (3.5-5.5)
--- NOTE | 2024-10-24 06:55 | NUR ---
SHIFT SUMMARY ASSUMED CARE OF PT REPORT FROM LEOBARDO MCKEON. PATIENT IN RECLINER. REPORTS HE HAS NOT GOT MUCH SLEEP. ICE KEEPS FALLING OFF. PUT IT THROUGH STRAP TO SEE IF IT WOULD STAY. GAVE TORADOL SCHEDULED, PT DENIES PAIN. CIRC CHECKS WNL. WILL REPORT OFF TO RN GETTING PT DAYSHIFT.
[2024-10-24 07:23] VITALS: BP 106/68
[2024-10-24] MEDS ORDERED: Potassium Chloride 20 MEQ TabCR PO SCH (09:00)
[2024-10-24] MEDS ORDERED: Allopurinol 100 MG Tab PO SCH (09:00)
[2024-10-24] MEDS ORDERED: Rosuvastatin Calcium 10 MG Tab PO SCH (09:00)
[2024-10-24] MEDS ORDERED: Bumetanide 1 MG Tab PO SCH (09:00)
[2024-10-24] MEDS ORDERED: Clopidogrel Bisulfate 75 MG Tab PO SCH (09:00)
[2024-10-24] MEDS ORDERED: Metoprolol Succinate 50 MG TABCR PO SCH (09:00)
[2024-10-24] MEDS ORDERED: Empagliflozin 25 MG TAB PO SCH (09:00)
--- NOTE | 2024-10-24 11:33 | NUR ---
PATIENT DC'D TO HOME WITH FAMILY. DC INSTRUCTIONS AND EDUCATION DISCUSSED WITH PATIENT AND COPY PROVIDED. PATIENT DENIES ANY FURTHER QUESTIONS OR CONCERNS. RX MEDICATIONS HAVE BEEN SENT TO [facility].
== END 2024-10-24 11:18 | disposition home health service (06) ==
LOC: ORSCMMR 06:13 → ORD 07:30 → ORSCMMR 07:30 → SURS 10:22
PROVIDERS: ADMIT Orthopaedic Surgery
PROC: 0RRJ0JZ Replacement of Right Shoulder Joint with Synthetic Substitute, Open Approach (ICD-10-PCS; principal; 2024-10-23 07:30)
DX: M19.011 Primary osteoarthritis, right shoulder (principal); I25.10 Atherosclerotic heart disease of native coronary artery without angina pectoris; J44.9 Chronic obstructive pulmonary disease, unspecified; I10 Essential (primary) hypertension; E11.9 Type 2 diabetes mellitus without complications; E78.5 Hyperlipidemia, unspecified; I25.2 Old myocardial infarction; G47.33 Obstructive sleep apnea (adult) (pediatric); Z87.891 Personal history of nicotine dependence; Z88.8 Allergy status to other drugs, medicaments and biological substances; Z79.82 Long term (current) use of aspirin; Z79.02 Long term (current) use of antithrombotics/antiplatelets; Z79.899 Other long term (current) drug therapy
CPT/HCPCS: 36415; 73030; 80048; 82947; 83735; 85025; 94760; 97110; 97116; 97161; 97166; 97530; 97535; A9270; C1713; C1776; J0171; J0690; J0735; J1100; J1815; J1885; J2250; J2371; J2405; J2795; J3010; J7120